=== PATIENT | male | born 1940 | race Caucasian/White ===

== ENCOUNTER 2018-03-19 12:21 | Emergency (ER) | payer MEDICARE, BC ==
[2018-03-19 13:20] LABS: BASO % 0.3 % (0-6); EOS % 1.7 % (0-6); HEMATOCRIT 33.9 % (42.0-52.0); HEMOGLOBIN 10.7 gm/dl (14.0-18.0); LYMPH % 15.1 % (16-45); MEAN CELL VOLUME 84.8 fl (81-97); MEAN CORPUSCULAR HGB CONC 31.6 g/dl (32-36); MEAN PLATELET VOLUME 9.6 fl (7.4-10.4); MONO % 6.9 % (0-9); PLATELET COUNT 280 K/uL (130-400); RED CELL DISTRIBUTION WIDTH 12.8 % (11.5-14.5); WHITE BLOOD COUNT W/O DIFF 5.8 K/uL (4.2-12.2)
[2018-03-19 13:21] LABS: URINE APPEARANCE CLEAR; URINE BILIRUBIN NEGATIVE (NEGATIVE); URINE BLOOD NEGATIVE (NEGATIVE); URINE COLOR YELLOW; URINE GLUCOSE (UA) NEGATIVE (NEGATIVE); URINE KETONE NEGATIVE (NEGATIVE); URINE LEUKOCYTE ESTERASE NEGATIVE (NEGATIVE); URINE NITRITE NEGATIVE (NEGATIVE); URINE PROTEIN NEGATIVE (NEGATIVE); URINE UROBILINOGEN 0.2 E.U./dL (0.20 - 1.00)
[2018-03-19 13:22] LABS: MEAN CORPUSCULAR HEMOGLOBIN 26.7 pg (27-33)
[2018-03-19 13:26] LABS: BLOOD UREA NITROGEN 22 mg/dL (8-23); CREATININE 0.8 mg/dL (0.7-1.2); EST GLOMERULAR FILTRATION RATE > 60 mL/min
[2018-03-19 13:27] LABS: TOTAL PROTEIN 7.8 g/dL (6.6-8.7)
[2018-03-19 13:29] LABS: GLUCOSE,RANDOM 120 mg/dL (74-109)
[2018-03-19 13:31] LABS: ALT/SGPT 13 U/L (<41); AST/SGOT 22 U/L (10.0-50.0)
[2018-03-19 13:32] LABS: ALB/GLOB RATIO 1.4 (1.1-1.8); ALBUMIN 4.5 g/dL (4.0-5.0); ALKALINE PHOSPHATASE 109 U/L (40-129)
[2018-03-19 13:58] LABS: ERYTHROCYTE SEDIMENTATION RATE 28 mm/hr (0-20)
--- NOTE | 2018-03-19 14:34 | Emergency Department Record ---
History of Present Illness - General Chief Complaint: Fever Stated Complaint: CHILLS,FEVER Time Seen by Provider: 03/19/18 12:49 Source: Patient, Family Mode of Arrival: Ambulatory Limitations: No limitations - History of Present Illness Initial Comments: pt has had sweats and chills and been unable to sleep for 3 nights. he has no cough, no known fever, no pain. he is trying to taper off neurontin and elzbieta SWENSON Complaint: Other Onset/Timin -: Days(s) Associated Symptoms: Headache, Night sweats Treatments Prior to Arrival: None - Related Data Home Medications Medication Instructions Recorded Confirmed Last Taken Gabapentin [Neurontin] 300 mg PO BID 03/19/18 03/19/18 Unknown Pantoprazole Sodium [Protonix] 20 mg PO DAILY 03/19/18 03/19/18 03/19/18 Allergies Allergy/AdvReac Type Severity Reaction Status Date / Time No Known Drug Allergies Allergy Verified 03/19/18 12:33 Travel Screening - Travel/Exposure Within Last 30 Days Have you traveled within the last 30 days?: No Past Medical History - SOCIAL HISTORY Smoking Status: Former smoker Alcohol Use: None Drug Use: None - RESPIRATORY Hx Respiratory Disorders: No - CARDIOVASCULAR Hx Cardio Disorders: Yes Hx Heart Attack: Yes (1994) Hx Hypertension: Yes Comment:: high cholesterol - NEURO Hx Neuro Disorders: No - GI Hx GI Disorders: Yes Comment:: "stomach inflammation" - Hx Genitourinary Disorders: No - ENDOCRINE Hx Endocrine Disorders: Yes Hx Diabetes: No Hx Thyroid Disease: Yes - MUSCULOSKELETAL Hx Musculoskeletal Disorders: Yes Hx Arthritis: Yes - PSYCH Hx Psych Problems: No - HEMATOLOGY/ONCOLOGY Hx Hematology/Oncology Disorders: No Family Medical History Any Significant Family History?: No Course Vital Signs 03/19/18 12:27 Temperature 98.5 F Pulse Rate 63 Respiratory 20 Rate Blood Pressure 157/72 Pulse Ox 96 Medical Decision Making - Lab Data Result diagrams: 03/19/18 13:05 03/19/18 13:05 Lab Results 03/19/18 03/19/18 03/19/18 Range/Units 13:05 13:05 13:05 WBC 5.8 (4.2-12.2) K/uL RBC 4.00 L (4.40-5.70) M/uL Hgb 10.7 L (14.0-18.0) gm/dl Hct 33.9 L (42.0-52.0) % MCV 84.8 (81-97) fl MCH 26.7 L (27-33) pg MCHC 31.6 L (32-36) g/dl RDW 12.8 (11.5-14.5) % Plt Count 280 (130-400) K/uL MPV 9.6 (7.4-10.4) fl Gran % 76.0 (47-80) % Lymphocytes % 15.1 L (16-45) % Monocytes % 6.9 (0-9) % Eosinophils % 1.7 (0-6) % Basophils % 0.3 (0-6) % ESR 28 H (0-20) mm/hr Sodium 140 (136-145) mmol/L Potassium 3.6 (3.4-4.5) mmol/L Chloride 98 (98-107) mmol/L Carbon Dioxide 26.0 (22-29) mmol/L Anion Gap 16.0 (7-16) BUN 22 (8-23) mg/dL Creatinine 0.8 (0.7-1.2) mg/dL Estimated GFR > 60 mL/min Random Glucose 120 H (74-109) mg/dL Lactic Acid Cancelled Calcium 9.7 (8.8-10.2) mg/dL Total Bilirubin 0.60 (0.2-1.0) mg/dL AST 22 (10.0-50.0) U/L ALT 13 (<41) U/L Alkaline Phosphatase 109 (40-129) U/L Total Protein 7.8 (6.6-8.7) g/dL Albumin 4.5 (4.0-5.0) g/dL Globulin 3.3 (1.4-4.8) gm/dL Albumin/Globulin Ratio 1.4 (1.1-1.8) Urine Color Yellow Urine Appearance Clear Urine pH 6.0 (5.0-8.0) Ur Specific [place] 1.025 (1.002-1.030) Urine Protein Negative (NEGATIVE) Urine Glucose (UA) Negative (NEGATIVE) Urine Ketones Negative (NEGATIVE) Urine Blood Negative (NEGATIVE) Urine Nitrite Negative (NEGATIVE) Urine Bilirubin Negative (NEGATIVE) Urine Urobilinogen 0.2 (0.20 - 1.00) E.U./dL Ur Leukocyte Esterase Negative (NEGATIVE) 03/19/18 Range/Units 13:17 WBC (4.2-12.2) K/uL RBC (4.40-5.70) M/uL Hgb (14.0-18.0) gm/dl Hct (42.0-52.0) % MCV (81-97) fl MCH (27-33) pg MCHC (32-36) g/dl RDW (11.5-14.5) % Plt Count (130-400) K/uL MPV (7.4-10.4) fl Gran % (47-80) % Lymphocytes % (16-45) % Monocytes % (0-9) % Eosinophils % (0-6) % Basophils % (0-6) % ESR (0-20) mm/hr Sodium (136-145) mmol/L Potassium (3.4-4.5) mmol/L Chloride (98-107) mmol/L Carbon Dioxide (22-29) mmol/L Anion Gap (7-16) BUN (8-23) mg/dL Creatinine (0.7-1.2) mg/dL Estimated GFR mL/min Random Glucose (74-109) mg/dL Lactic Acid 0.8 Calcium (8.8-10.2) mg/dL Total Bilirubin (0.2-1.0) mg/dL AST (10.0-50.0) U/L ALT (<41) U/L Alkaline Phosphatase (40-129) U/L Total Protein (6.6-8.7) g/dL Albumin (4.0-5.0) g/dL Globulin (1.4-4.8) gm/dL Albumin/Globulin Ratio (1.1-1.8) Urine Color Urine Appearance Urine pH (5.0-8.0) Ur Specific [place] (1.002-1.030) Urine Protein (NEGATIVE) Urine Glucose (UA) (NEGATIVE) Urine Ketones (NEGATIVE) Urine Blood (NEGATIVE) Urine Nitrite (NEGATIVE) Urine Bilirubin (NEGATIVE) Urine Urobilinogen (0.20 - 1.00) E.U./dL Ur Leukocyte Esterase (NEGATIVE) Disposition Disposition: Discharge Clinical Impression: Medication reaction Qualifiers: Encounter type: initial encounter Qualified Code(s): T50.905A - Adverse effect of unspecified drugs, medicaments and biological substances, initial encounter Disposition: Home, Self-Care Condition: (1) Good Instructions: Adverse Drug Reaction (ED) Additional Instructions: follow up with family doctor. return sooner if worse. take neurontin [ gabapentin] at night Forms: Patient Portal Access Quality - Quality Measures Quality Measures: N/A - Blood Pressure Screening Does Patient Have Any of the Following: Active Dx of HTN Blood Pressure Classification: Hypertensive Reading Systolic Measurement: 157 Diastolic Measurement: 72 Screening for High Blood Pressure: Patient Exclusion, Hx of HTN [[id number]]
--- NOTE | 2018-03-20 10:57 | RADIOLOGY REPORT ---
DATE: 03/19/2018. EXAM: TWO-VIEW, CHEST. HISTORY: Chills, fever. COMPARISON: 02/06/2014. TECHNIQUE: Frontal and lateral views of the chest were performed. FINDINGS: Heart size is normal. Postoperative sternotomy wires. Lung fernandes are clear. No infiltrate or pleural effusion. The osseous structures are normal. IMPRESSION: NO ACUTE DISEASE PROCESS. JOB NUMBER: [id number] MTDD
== END 2018-03-19 15:15 | disposition home or self-care (01) ==
LOC: ER 12:21
DX: T42.6X5A Adverse effect of other antiepileptic and sedative-hypnotic drugs, initial encounter (principal); T39.1X5A Adverse effect of 4-Aminophenol derivatives, initial encounter; R51 Headache; R50.81 Fever presenting with conditions classified elsewhere; R61 Generalized hyperhidrosis; I10 Essential (primary) hypertension; I25.2 Old myocardial infarction; Z87.891 Personal history of nicotine dependence
CPT/HCPCS: 71046; 80053; 81003; 83605; 84443; 85025; 85651; 99283; 99284